=== PATIENT | female | born 1960 ===

== ENCOUNTER 2019-01-30 06:20 | Day surgery (SDC) | payer OTHER ==
[~2019-01-30 06:20] MED LIST: ACTOS15 MG PO; ALLOPURINOL300 MG PO; AVAPRO300 MG PO; CRESTOR10 MG PO; FORTAMET1000 MG PO; PROCARDIA PO; TOPROL XL200 MG PO
== END 2019-01-30 15:20 | disposition home or self-care (01) ==
LOC: CIR.AMB 06:20
DX: N84.1 Polyp of cervix uteri (principal)